=== PATIENT | female | born 1985 | race African-American/Black ===

== ENCOUNTER 2018-12-09 07:45 | Emergency (ER) | payer OTHER ==
[~2018-12-09] VITALS: Ht 180.3 cm; Wt 76.2 kg
[2018-12-09] MEDS ORDERED: LEVOXYL50 MCG (08:03)
[2018-12-09] MEDS ORDERED: CORTEF20 MG (08:04)
[2018-12-09] MEDS ORDERED: DDAVP0.2 MG (08:04)
[2018-12-09] MEDS ORDERED: MUCINEX DM ER1 EAC1 PO (13:08)
[2018-12-09] MEDS ORDERED: ZITHROMAX500 MG PO (13:08)
[2018-12-09] MEDS ORDERED: IPRAT-ALBUT 0.5-3 ML IH (13:08)
[2018-12-09] MEDS ORDERED: BUDESONIDE0.5 MG/2 M IH (13:08)
== END 2018-12-09 14:33 ==
LOC: ER 07:45
DX: J06.9 Acute upper respiratory infection, unspecified (principal)